=== PATIENT | female | born 1965 | race Caucasian/White ===

== ENCOUNTER → 2017-05-10 | Outpatient (CLI) | payer MEDICAID ==
[~2017-05-10] MED LIST: ASPIRIN 81MG TA81 MG PO; LIPITOR40 MG PO; LISINOPRIL 20MG20 MG PO; PLAVIX 75MG TAB75 MG PO; ROBAXIN-750750 MG PO; SIMVASTATIN20 MG PO; TRAMADOL50 M1 PO
--- NOTE | 2017-05-13 13:29 | RADIOLOGY REPORT PS360 ---
History and Indications: Coronary artery disease, hypertension, hyperlipidemia, tobacco use, family history, chest pain suggestive of angina, shortness of breath and fatigue Procedure: Patient received a 0.4 mg of Lexiscan, resting heart rate was 49 bpm, resting blood pressure 126/76, with Lexiscan maximum heart rate achieved was 87 bpm is less than 85% of the maximum predicted heart rate and a blood pressure was 118/66. With Lexiscan patient complained of mild chest pressure and shortness of breath. Electrocardiogram: Resting electrocardiogram showed sinus bradycardia, with Lexiscan there is less than 1.[address] segment depression noted from the baseline EKG, occasional premature ventricular complexes were also seen. The EKG portion of the Lexiscan Myoview is nondiagnostic Cardiac stress and resting SPECT images: Cardiac stress and rest SPECT images were obtained using technetium 99 Myoview 10.0 mCi at rest and 29.6 mCi at stress. Gated SPECT further analysis of segmental wall motion and calculation of the ejection fraction also done. Cardiac stress and rest SPECT images show a fixed the anterior wall with normal contractility in the gated SPECT is likely secondary to soft tissue attenuation, no reversible ischemia seen. Derived ejection fraction is 63% with no obvious regional wall motion abnormality right ventricle is normal size and contractility. Conclusion: 1. The EKG portion of the Lexiscan Myoview is nondiagnostic. 2. No obvious scintigraphic evidence of reversible ischemia seen, a fixed defect in the anterior wall is likely secondary to soft tissue attenuation. Computer derived ejection fraction is 63% with no obvious wall motion abnormality, right ventricle is normal size and contractility. IMPRESSION:
== END ==
LOC: RAD 11:31
DX: I20.8 Other forms of angina pectoris (principal); I25.10 Atherosclerotic heart disease of native coronary artery without angina pectoris; I10 Essential (primary) hypertension; E78.5 Hyperlipidemia, unspecified; Z72.0 Tobacco use
CPT/HCPCS: A9502; J2785